=== PATIENT | male | born 1955 | race African-American/Black ===

== ENCOUNTER 2024-03-02 13:44 | Emergency (ER) | payer OTHER, MEDICAID, SELFPAY ==
[2024-03-02 13:56] VITALS: BP 132/82; PULSE 102; RESP 18; TEMP 37.1; O2SAT 96; BMI 31.4
--- NOTE | 2024-03-02 14:10 | XR_ITS ---
Examination: Knee, right , 3 views Technique: Knee AP, lateral, oblique 3 views Date and time of exam: March 02, 2024 1433 hours INDICATIONS: Patient fell today with injury to the knee, knee pain. FINDINGS: Total right knee arthroplasty. Satisfactory alignment. No fracture IMPRESSION: No fracture
--- NOTE | 2024-03-02 14:55 | PD.EDFALL ---
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 Patient reports he had a trip and fall today patient reports when he slipped on the wet ramp he twisted his right knee patient reports no head or neck injury Limitations: no limitations Related Data Home Medications ?Medication ?Instructions ?Recorded ?Confirmed clopidogrel 75 mg tablet (Plavix) 75 mg PO QDAY ##0 12/10/09 01/17/21 montelukast 10 mg tablet 10 mg PO QPM ##0 12/10/09 01/17/21 (Singulair) valsartan 80 mg tablet (Diovan) 80 mg PO QDAY ##0 12/10/09 01/17/21 albuterol sulfate 90 mcg/actuation 2 puff IH Q4H PRN asthma ##0 08/29/16 01/17/21 breath activated powder inhaler (ProAir RespiClick) celecoxib 200 mg capsule (Celebrex) 200 mg PO BID #0 caps 08/29/16 01/17/21 cyclobenzaprine 10 mg tablet 10 mg PO TID PRN Muscle Spasm #0 08/29/16 01/17/21 tabs levetiracetam 750 mg tablet 750 mg PO BID #0 tabs 08/29/16 01/17/21 (Keppra) metformin 500 mg tablet 500 mg PO QDAY #0 tabs 08/29/16 01/17/21 (Glucophage) oxybutynin chloride 5 mg tablet 5 mg PO TID PRN urinary discomfort 08/29/16 01/17/21 ##0 tramadol 50 mg tablet 50 mg PO Q4H PRN Pain 03/17/18 01/17/21 albuterol sulfate 1.25 mg/3 mL 2.5 mg inhalation Q20M PRN 05/09/18 01/17/21 solution for nebulization Bronchospasm cholecalciferol (vitamin D3) 1,250 1,250 mcg PO QWEEK 01/16/21 01/17/21 mcg (50,000 unit) tablet famotidine 20 mg tablet 20 mg PO QDAY 01/16/21 01/17/21 Previous Rx's ?Medication ?Instructions ?Recorded hydrocodone 5 mg-acetaminophen 325 1 tab PO BID PRN pain #10 tabs 03/02/ mg tablet Allergies Allergy/AdvReac Type Severity Reaction Status Date / Time acetaminophen Allergy Unknown Hives Verified 01/17/21 10:15 ibuprofen Allergy Unknown Rash Verified 01/17/21 10:15 aspirin AdvReac Mild Nausea Verified 01/17/21 10:15 mayonnaise AdvReac Mild Vomiting Verified 01/17/21 10:15 Review of Systems Review of Systems Systems Reviewed: All systems reviewed, normal except as documented Constitutional Constitutional: Reports system reviewed and no additional complaints, except as documented, Denies fever(s) and Denies headache(s) Eyes Eyes: Reports system reviewed and no additional complaints, except as documented and Denies blurry vision ENT Ears, Nose, Mouth, and Throat: Reports system reviewed and no additional complaints, except as documented, Denies headache(s), Denies nasal congestion and Denies nasal discharge Cardiovascular Cardiovascular: Reports system reviewed and no additional complaints, except as documented, Denies chest pain and Denies dyspnea Respiratory Respiratory: Reports system reviewed and no additional complaints, except as documented, Denies chest congestion, Denies cough and Denies dyspnea Gastrointestinal Gastrointestinal: Reports system reviewed and no additional complaints, except as documented and Denies abdominal pain Musculoskeletal Musculoskeletal: Reports system reviewed and no additional complaints, except as documented, Reports abnormal gait, Reports arthralgias, Denies deformity, Reports joint swelling, Denies numbness, Reports stiffness and Denies tingling Integumentary/Breasts Skin/Breast: Reports system reviewed and no additional complaints, except as documented and Denies rash Neurologic Neurologic: Reports system reviewed and no additional complaints, except as documented, Reports as per HPI, Reports abnormal gait, Denies headache(s), Denies numbness and Denies tingling Past Medical History Past Medical History NEUROLOGIC: Negative Neurological Disorders CARDIAC: Negative Cardiac Disorders ED Exam General Limitations: Present no limitations General appearance: Present alert and in no apparent distress Head Head exam: Present atraumatic Eye Eye exam: Present normal appearance, PERRL and EOMI ENT ENT exam: Present normal exam, normal oropharynx and mucous membranes moist Neck Neck exam: Present normal inspection, full ROM and trachea midline Chest Chest inspection: Present normal inspection and symmetric chest wall rise Respiratory Respiratory exam: Present normal lung sounds bilaterally Cardiovascular Cardiovascular exam: Present regular rate, normal rhythm and normal heart sounds Abdominal Exam Abdominal exam: Present soft and normal bowel sounds Extremities Exam Extremities exam: Present tenderness, normal capillary refill and joint swelling; Absent pedal edema or calf tenderness Back Exam Back exam: Present normal inspection and full ROM Neurological Exam Neurological exam: Present alert, oriented X3 and CN II-XII intact Psychiatric Psychiatric exam: Present normal affect and normal mood Skin Skin exam: Present warm, dry, intact and normal color Course Quality Measures none Orders Category Date Time Status wayne wrap [Splint / Immobilizer] STAT Care 03/02/24 15:12 Completed XR knee RT 3V Stat Exams 03/02/24 14:10 Completed HYDROcodone*/APAP 5/325 [[place] 5/325] Med 03/02/24 15:12 Discontinued 1 tab PO X1 ONE Vital Signs Vital signs: Vital Signs Temperature 98.7 F 03/02/24 13:56 Pulse Rate 102 H 03/02/24 13:56 Respiratory Rate 18 03/02/24 13:56 Blood Pressure 132/82 H 03/02/24 13:56 Pulse Oximetry (%) 96 03/02/24 13:56 Oxygen Delivery Method Room Air 03/02/24 13:56 O2 saturation 96% room air within normal limits Fall MDM Narrative MDM Narrative:: 69-year-old male presents to the emergency department complaints of right knee pain patient reports 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 Patient reports he had a trip and fall today patient reports when he slipped on the wet ramp he twisted his right knee patient reports no head or neck injury X-ray of right knee obtained no acute fracture dislocation noted hardware appears to be intact and in good position Patient given [place] wrap and [place] Patient instructed to follow-up with primary care doctor or request outpatient MRI for worsening symptoms return immediately Patient data External records reviewed:: [facility] previous records Clinical information provided by:: patient Social determinants that could affect healthcare access:: none Patient has the following chronic illnesses:: See history How is presenting disease/condition affected by chronic disease/condition?: uneffected by Evaluation data The following diagnostics were reviewed and interpreted by me:: radiology exam(s) Lab and/or radiology exams considered but not ordered:: Radiology obtain Interpretation Summary: Reviewed by me Medications / Prescriptions Medications or Prescriptions considered but not ordered:: Given Medication administrations:: Medication Administration History Discontinued Medications Hydrocodone Bitart/Acetaminophen (Hydrocodone/Apap 5/325 Tablet) 1 tab PO X1 ONE Stop: 03/02/24 15:13 Last Admin: 03/02/24 15:19 Dose: 1 tab Documented By: ROVERTO Given Consultations Consultation(s) initiated? (list below): No Diagnosis Fall Differential Diagnosis: other (Knee sprain, knee fracture) Most likely diagnosis given after review of the tests above:: Knee sprain Admission Indicated Admission indicated?: not indicated Admission Request Was there a request for admission?: No Disposition Plan Disposition Plan: Discharge Discharge Attestation Discharge Attestation: The patient and all family members were given an opportunity to ask questions and understood the discharge instructions. Discharge instructions specifically effects, indications for sooner follow up or return to the emergency department, and the expected course of current diagnosis. Patient condition: Stable Discharge Plan Plan Patient Disposition: HOME (Self Care) Disposition Comment: Stable Prescriptions/Referrals Prescriptions/Med Rec: New hydrocodone-acetaminophen 5-325 mg tablet 1 tab PO BID MDD 10 PRN (Reason: pain) Qty: 10 0RF No Action valsartan [Diovan] 80 MG tablet 80 mg PO QDAY Qty: 0 clopidogrel [Plavix] 75 MG tablet 75 mg PO QDAY Qty: 0 montelukast [Singulair] 10 MG tablet 10 mg PO QPM Qty: 0 celecoxib [Celebrex] 200 MG capsule 200 mg PO BID Qty: 0 cyclobenzaprine 10 mg Tablet 10 mg PO TID PRN (Reason: Muscle Spasm) Qty: 0 metformin [Glucophage] 500 MG tablet 500 mg PO QDAY Qty: 0 levetiracetam [Keppra] 750 MG tablet 750 mg PO BID Qty: 0 oxybutynin chloride 5 mg Tablet 5 mg PO TID PRN (Reason: urinary discomfort) Qty: 0 ProAir RespiClick 90 MCG aerosol powdr breath activated 2 puff IH Q4H PRN (Reason: asthma) Qty: 0 tramadol 50 mg tablet 50 mg PO Q4H PRN (Reason: Pain) albuterol sulfate 1.25 mg/3 mL Solution For Nebulization 2.5 mg INHALATION Q20M PRN (Reason: Bronchospasm) famotidine 20 mg tablet 20 mg PO QDAY Patient Comments: TAKE 1 TABLET BY MOUTH TWICE A DAY cholecalciferol (vitamin D3) 1,250 mcg (50,000 unit) Tablet 1,250 mcg PO QWEEK Referrals: Dianne Loco MD [Primary Care Provider] - In 1 week Problem List Clinical Impression: Knee pain, right Patient/Caregiver Discharge Instructions Education Materials: ED Arthralgia Additional Instructions: Please follow up with your primary care doctor in the next 24-48hrs for any worsening symptoms return here immediately Please request MRI from primary care doctor Print Language: Yoruba Stand Alone Forms: [employer]ess[employer] Award Info., Patient Portal Info Letter MD Attestation Attestation The patient was seen by the midlevel practitioner. I, the co-signing physician, was present during the entire ER visit. While I did not physically examine the patient, I was available for consultation as needed.
[2024-03-02] MEDS: HYDROcodone/APAP 5/325 TABLET 1 TAB PO (15:19)
== END 2024-03-02 15:25 | disposition home or self-care (01) ==
PROVIDERS: Emergency Provider Emergency Medicine; PCP Internal Medicine
DX: S89.91XA Unspecified injury of right lower leg, initial encounter (principal); W01.0XXA Fall on same level from slipping, tripping and stumbling without subsequent striking against object, initial encounter; Z96.651 Presence of right artificial knee joint
CPT/HCPCS: 73562; 99283; A9270